=== PATIENT | female | born 1950 | race African-American/Black ===

== ENCOUNTER 2022-09-13 13:34 | Inpatient (IN) | payer OTHER ==
[2022-09-13] MEDS ORDERED: Bisacodyl 10 MG SUPP PR PRN (16:40)
[2022-09-13] MEDS ORDERED: Acetaminophen 325 MG TAB PO PRN (16:40)
[2022-09-13] MEDS ORDERED: Senokot S 8.6-50 MG TAB PO PRN (16:40)
[2022-09-13] MEDS ORDERED: Ipratropium/Albuterol 3 ML NEB EZPAP PRN (17:19)
[2022-09-13] MEDS ORDERED: ACETAMINOPHEN 325 MG/10.15 ML PER TUBE SCH (21:00)
[2022-09-13] MEDS ORDERED: [UNRECOGNIZED DRUG - OTHER] PER TUBE SCH (21:00)
[2022-09-13 21:03] VITALS: BMI 26.0
[2022-09-13] MEDS: Lansoprazole 3 MG/ML ORAL SUSPENSION PER TUBE SCH (21:37)
[2022-09-13] MEDS: Senokot S 8.6-50 MG TAB PO SCH (21:39)
[2022-09-13] MEDS: Apixaban 5 MG TAB PER TUBE SCH (21:39)
[2022-09-13] MEDS: Atorvastatin Calcium 40 MG TAB PER TUBE SCH (21:39)
[2022-09-14 06:12] LABS: #Basophils 0.2 thou/uL (0.0-0.2); #Eosinphils 0.5 thou/uL (0.0-0.7); #Lymphocytes 1.5 thou/uL (1.20-3.40); #Monocytes 0.5 thou/uL (0.11-0.59); #Neutrophils 4.3 thou/uL (1.40-6.50); %Basophils 2.5 % (0.0-1.0); %Eosinophils 7.3 % (0.0-10.0); %Lymphocytes 21.5 % (21.0-51.0); %Monocytes 6.8 % (0.0-10.0); %Neutrophils 61.9 % (42.0-75.0); Hemoglobin 11.5 g/dL (12.0-16.0); Mean Corpuscular HGB CONC 31.1 g/dL (32.0-36.0); Mean Corpuscular Hemoglobin 25.8 pg (27.0-31.0); Mean Corpuscular Volume 83.1 fl (78.0-98.0); Platelet Count 497 10x3/uL (130-400); RBC Distribution Width 13.4 % (11.5-14.5); Red Blood Cell (RBC) Count 4.44 mill/uL (4.20-5.40); White Blood Cell (WBC) Count 6.9 10x3/uL (4.8-10.8)
[2022-09-14 06:23] LABS: ALT (SGPT) 21 U/L (8-55); AST (SGOT) 22 U/L (5-34); Albumin 3.4 g/dL (3.4-4.8); Alkaline Phosphatase 95 U/L (40-110); Anion Gap 12 mmol/L (10-20); BUN (Urea Nitrogen) 25 mg/dL (9.8-20.1); Bilirubin, Total 0.2 mg/dL (0.2-1.2); Calc. Creatinine Clearance 72 mL/min (70-130); Calcium 9.8 mg/dL (7.8-10.44); Carbon Dioxide 28 mmol/L (23-31); Chloride 101 mmol/L (98-107); Estimated GFR 73; Glucose 153 mg/dL (80-115); Potassium 4.4 mmol/L (3.5-5.1); Protein, Total 7.4 g/dL (5.8-8.1); Sodium 137 mmol/L (136-145)
[2022-09-14] MEDS: Levothyroxine Sodium 25 MCG TAB PER TUBE SCH (06:26)
[2022-09-14] MEDS ORDERED: Dextrose 5% in Water 1,000 ML IV PRN (06:30)
[2022-09-14] MEDS ORDERED: HumaLOG 300 UNITS/3 ML VIAL SC PRN ×2 (06:30)
[2022-09-14] MEDS ORDERED: Glucagon 1 MG/ML KIT IM PRN (06:30)
[2022-09-14] MEDS ORDERED: Dextrose 50% Abboject 50 ML SYRINGE IVP PRN (06:30)
[2022-09-14] MEDS ORDERED: Carvedilol 25 MG TAB PER TUBE SCH (09:00)
[2022-09-14] MEDS: metFORMIN 500 MG TAB PER TUBE SCH (12:18)
[2022-09-14] MEDS: Senokot S 8.6-50 MG TAB PO SCH ×2 (12:18→21:20)
[2022-09-14] MEDS: Apixaban 5 MG TAB PER TUBE SCH ×2 (12:18→21:20)
[2022-09-14] MEDS: Aspirin Chewable 81 MG TAB PER TUBE SCH (12:19)
[2022-09-14] MEDS: Lansoprazole 3 MG/ML ORAL SUSPENSION PER TUBE SCH ×2 (12:20→21:17)
[2022-09-14] MEDS: Venlafaxine HCl XR 75 MG CAP PO SCH (12:22)
[2022-09-14] MEDS ORDERED: traMADol HCl 50 MG TAB PO PRN (18:12)
[2022-09-14] MEDS: Carvedilol 6.25 MG TAB PER TUBE SCH (18:16)
[2022-09-14] MEDS: Atorvastatin Calcium 40 MG TAB PER TUBE SCH (21:19)
[2022-09-14] MEDS: Ondansetron ODT 4 MG TAB PER TUBE PRN (22:00)
[2022-09-15] MEDS: Levothyroxine Sodium 25 MCG TAB PER TUBE SCH (06:18)
[2022-09-15] MEDS: Aspirin Chewable 81 MG TAB PER TUBE SCH (08:16)
[2022-09-15] MEDS: Senokot S 8.6-50 MG TAB PO SCH ×2 (08:16→21:24)
[2022-09-15] MEDS: metFORMIN 500 MG TAB PER TUBE SCH (08:16)
[2022-09-15] MEDS: Apixaban 5 MG TAB PER TUBE SCH ×2 (08:16→21:24)
[2022-09-15] MEDS: Carvedilol 6.25 MG TAB PER TUBE SCH ×2 (08:19→16:14)
[2022-09-15] MEDS: Lansoprazole 3 MG/ML ORAL SUSPENSION PER TUBE SCH ×2 (08:19→21:24)
[2022-09-15] MEDS: Venlafaxine HCl XR 75 MG CAP PO SCH (08:20)
[2022-09-15] MEDS: Ondansetron ODT 4 MG TAB PER TUBE PRN ×2 (09:30→18:24)
[2022-09-15] MEDS ORDERED: Promethazine 25 MG TAB PER TUBE SCH (10:00)
[2022-09-15] MEDS: Atorvastatin Calcium 40 MG TAB PER TUBE SCH (21:24)
[2022-09-16] MEDS: Levothyroxine Sodium 25 MCG TAB PER TUBE SCH (05:43)
[2022-09-16] MEDS: metFORMIN 500 MG TAB PER TUBE SCH (08:32)
[2022-09-16] MEDS: Lansoprazole 3 MG/ML ORAL SUSPENSION PER TUBE SCH ×2 (08:32→21:46)
[2022-09-16] MEDS: Venlafaxine HCl XR 75 MG CAP PO SCH (08:33)
[2022-09-16] MEDS: Apixaban 5 MG TAB PER TUBE SCH ×2 (08:33→21:23)
[2022-09-16] MEDS: Aspirin Chewable 81 MG TAB PER TUBE SCH (08:33)
[2022-09-16] MEDS: Senokot S 8.6-50 MG TAB PO SCH ×2 (08:33→21:23)
[2022-09-16] MEDS: Carvedilol 6.25 MG TAB PER TUBE SCH ×2 (08:51→17:21)
[2022-09-16] MEDS ORDERED: Lactated Ringer's 1,000 ML IV SCH (11:30)
[2022-09-16 14:27] LABS: Bilirubin Negative (Negative); Blood, Urine Large (Negative); Clarity Clear (Clear); Glucose, Urine (Dipstick) Negative (Negative); Ketone, Urine Negative (Negative); Leukocyte Trace (Negative); Nitrite Negative (Negative); Protein, Urine (Dipstick) Negative (Neg-Trace); Specific Gravity, Urine 1.015 (1.005-1.030); Urobilinogen 0.2 mg/dL (Less than 2); pH, Urine 5.5 (5.0-9.0)
[2022-09-16 14:28] LABS: CAUTI Indications for Culture Dysuria,urgency,freq
[2022-09-16 14:32] LABS: RBC/HPF Greater than 50 HPF (0-3); Squamous Epithelial None Seen HPF (0-3); WBC/HPF 0-3 HPF (0-3)
[2022-09-16 14:33] LABS: Bacteria/HPF None Seen HPF (None Seen)
[2022-09-16 14:34] LABS: Urine Culture Reflex No No
[2022-09-16] MEDS: Atorvastatin Calcium 40 MG TAB PER TUBE SCH (21:23)
[2022-09-17] MEDS ORDERED: Docusate 100 MG CAP PO PRN (03:45)
[2022-09-17] MEDS: Levothyroxine Sodium 25 MCG TAB PER TUBE SCH (05:45)
[2022-09-17] MEDS: Venlafaxine HCl XR 75 MG CAP PO SCH (09:43)
[2022-09-17] MEDS: metFORMIN 500 MG TAB PER TUBE SCH ×2 (09:43→20:56)
[2022-09-17] MEDS: Carvedilol 6.25 MG TAB PER TUBE SCH ×2 (09:43→17:30)
[2022-09-17] MEDS: Aspirin Chewable 81 MG TAB PER TUBE SCH (09:44)
[2022-09-17] MEDS: Apixaban 5 MG TAB PER TUBE SCH ×2 (09:44→20:56)
[2022-09-17] MEDS: Lansoprazole 3 MG/ML ORAL SUSPENSION PER TUBE SCH ×2 (09:44→20:56)
[2022-09-17] MEDS: Senokot S 8.6-50 MG TAB PO SCH ×2 (09:44→21:44)
[2022-09-17] MEDS: Polyethylene Glycol 3350 17 GM Packet PO SCH (09:45)
[2022-09-17] MEDS ORDERED: Lidocaine 5% Patch TD PRN (09:47)
[2022-09-17] MEDS: Atorvastatin Calcium 40 MG TAB PER TUBE SCH (20:55)
[2022-09-18] MEDS: Levothyroxine Sodium 25 MCG TAB PER TUBE SCH (05:28)
[2022-09-18] MEDS: metFORMIN 500 MG TAB PER TUBE SCH ×2 (08:00→20:48)
[2022-09-18] MEDS: Lidocaine 4% Patch TD SCH (08:01)
[2022-09-18] MEDS: Carvedilol 6.25 MG TAB PER TUBE SCH ×2 (08:01→16:22)
[2022-09-18] MEDS: Lansoprazole 3 MG/ML ORAL SUSPENSION PER TUBE SCH ×2 (08:01→20:49)
[2022-09-18] MEDS: Apixaban 5 MG TAB PER TUBE SCH ×2 (08:01→20:48)
[2022-09-18] MEDS: Aspirin Chewable 81 MG TAB PER TUBE SCH (08:01)
[2022-09-18] MEDS: Polyethylene Glycol 3350 17 GM Packet PO SCH (08:01)
[2022-09-18] MEDS: Venlafaxine HCl XR 75 MG CAP PO SCH (08:02)
[2022-09-18] MEDS: Senokot S 8.6-50 MG TAB PO SCH ×2 (08:02→20:48)
[2022-09-18] MEDS: Ondansetron ODT 4 MG TAB PER TUBE PRN (09:39)
[2022-09-18] MEDS: Atorvastatin Calcium 40 MG TAB PER TUBE SCH (20:48)
[2022-09-18] MEDS: Venlafaxine HCl 25 MG TAB PO SCH (20:50)
[2022-09-19] MEDS: Transdermal Patch Removal TOP SCH ×2 (03:31→21:49)
[2022-09-19] MEDS: Levothyroxine Sodium 25 MCG TAB PER TUBE SCH (05:08)
[2022-09-19 05:49] LABS: Mean Corpuscular HGB CONC 32.1 g/dL (32.0-36.0); Mean Corpuscular Hemoglobin 26.1 pg (27.0-31.0); Mean Corpuscular Volume 81.4 fl (78.0-98.0); Platelet Count 303 10x3/uL (130-400); RBC Distribution Width 13.4 % (11.5-14.5); Red Blood Cell (RBC) Count 3.84 mill/uL (4.20-5.40); White Blood Cell (WBC) Count 7.4 10x3/uL (4.8-10.8)
[2022-09-19 06:02] LABS: Phosphorus 3.3 mg/dL (2.3-4.7)
[2022-09-19 06:04] LABS: ALT (SGPT) 17 U/L (8-55); AST (SGOT) 14 U/L (5-34); Albumin 3.2 g/dL (3.4-4.8); Alkaline Phosphatase 79 U/L (40-110); Anion Gap 14 mmol/L (10-20); BUN (Urea Nitrogen) 25 mg/dL (9.8-20.1); Bilirubin, Total 0.2 mg/dL (0.2-1.2); Calc. Creatinine Clearance 76 mL/min (70-130); Calcium 9.4 mg/dL (7.8-10.44); Carbon Dioxide 27 mmol/L (23-31); Chloride 101 mmol/L (98-107); Estimated GFR 77; Globulin 3.8 g/dL (2.4-3.5); Glucose 130 mg/dL (80-115); Magnesium 1.7 mg/dL (1.6-2.6); Potassium 4.2 mmol/L (3.5-5.1); Sodium 138 mmol/L (136-145)
[2022-09-19] MEDS: Magnesium Oxide 400 MG TAB PO SCH ×2 (09:01→21:48)
[2022-09-19] MEDS: Carvedilol 6.25 MG TAB PER TUBE SCH ×2 (09:01→17:38)
[2022-09-19] MEDS: Venlafaxine HCl 25 MG TAB PO SCH ×2 (09:01→21:49)
[2022-09-19] MEDS: Lidocaine 4% Patch TD SCH (09:01)
[2022-09-19] MEDS: Apixaban 5 MG TAB PER TUBE SCH ×2 (09:02→21:48)
[2022-09-19] MEDS: Lansoprazole 3 MG/ML ORAL SUSPENSION PER TUBE SCH ×2 (09:02→21:26)
[2022-09-19] MEDS: metFORMIN 500 MG TAB PER TUBE SCH ×2 (09:02→21:48)
[2022-09-19] MEDS: Empagliflozin 10 MG TAB PO SCH (09:02)
[2022-09-19] MEDS: Aspirin Chewable 81 MG TAB PER TUBE SCH (09:02)
[2022-09-19] MEDS: Polyethylene Glycol 3350 17 GM Packet PO SCH (09:21)
[2022-09-19] MEDS: Senokot S 8.6-50 MG TAB PO SCH ×2 (09:21→21:48)
[2022-09-19] MEDS: Atorvastatin Calcium 40 MG TAB PER TUBE SCH (21:48)
[2022-09-20] MEDS: Levothyroxine Sodium 25 MCG TAB PER TUBE SCH (06:10)
[2022-09-20] MEDS: Ondansetron ODT 4 MG TAB PER TUBE PRN (07:33)
[2022-09-20] MEDS ORDERED: Simethicone Chewable 80 MG TAB PO PRN (10:16)
[2022-09-20] MEDS ORDERED: Magnesium Chloride 64 MG TAB PO SCH ×2 (10:45→21:00)
[2022-09-20] MEDS: Lidocaine 4% Patch TD SCH (10:56)
[2022-09-20] MEDS: Carvedilol 6.25 MG TAB PER TUBE SCH ×2 (10:56→18:42)
[2022-09-20] MEDS: Apixaban 5 MG TAB PER TUBE SCH ×2 (10:56→22:09)
[2022-09-20] MEDS: Polyethylene Glycol 3350 17 GM Packet PO SCH (10:56)
[2022-09-20] MEDS: Senokot S 8.6-50 MG TAB PO SCH ×2 (10:57→22:09)
[2022-09-20] MEDS: Empagliflozin 10 MG TAB PO SCH (10:57)
[2022-09-20] MEDS: Aspirin Chewable 81 MG TAB PER TUBE SCH (10:57)
[2022-09-20] MEDS: Venlafaxine HCl 25 MG TAB PO SCH ×2 (10:57→22:09)
[2022-09-20] MEDS: metFORMIN 500 MG TAB PER TUBE SCH ×2 (10:57→22:16)
[2022-09-20] MEDS: Lansoprazole 3 MG/ML ORAL SUSPENSION PER TUBE SCH ×2 (10:58→22:09)
[2022-09-20] MEDS ORDERED: Magnesium Oxide 400 MG TAB PO SCH (11:00)
[2022-09-20] MEDS: Fleet Saline Enema 133 ML BOT PR SCH ×2 (11:01→12:57)
[2022-09-20] MEDS: Atorvastatin Calcium 40 MG TAB PER TUBE SCH (22:09)
[2022-09-20] MEDS: Magnesium Oxide 400 MG TAB PO SCH (22:09)
[2022-09-20] MEDS: Transdermal Patch Removal TOP SCH (22:10)
[2022-09-21] MEDS: Levothyroxine Sodium 25 MCG TAB PER TUBE SCH (04:59)
[2022-09-21 05:40] LABS: Hemoglobin 9.9 g/dL (12.0-16.0); Mean Corpuscular HGB CONC 32.4 g/dL (32.0-36.0); Mean Corpuscular Hemoglobin 26.4 pg (27.0-31.0); Mean Corpuscular Volume 81.5 fl (78.0-98.0); Platelet Count 266 10x3/uL (130-400); RBC Distribution Width 13.3 % (11.5-14.5); Red Blood Cell (RBC) Count 3.77 mill/uL (4.20-5.40); White Blood Cell (WBC) Count 6.9 10x3/uL (4.8-10.8)
[2022-09-21 05:52] LABS: Anion Gap 15 mmol/L (10-20); BUN (Urea Nitrogen) 21 mg/dL (9.8-20.1); Calc. Creatinine Clearance 77 mL/min (70-130); Calcium 9.5 mg/dL (7.8-10.44); Carbon Dioxide 25 mmol/L (23-31); Chloride 102 mmol/L (98-107); Estimated GFR 78; Glucose 125 mg/dL (80-115); Magnesium 1.9 mg/dL (1.6-2.6); Potassium 3.9 mmol/L (3.5-5.1); Sodium 138 mmol/L (136-145)
[2022-09-21] MEDS: Carvedilol 6.25 MG TAB PER TUBE SCH (08:00)
[2022-09-21] MEDS: Polyethylene Glycol 3350 17 GM Packet PO SCH (09:13)
[2022-09-21] MEDS: Senokot S 8.6-50 MG TAB PO SCH ×2 (09:13→21:47)
[2022-09-21] MEDS: Venlafaxine HCl 25 MG TAB PO SCH ×2 (09:13→21:48)
[2022-09-21] MEDS: Aspirin Chewable 81 MG TAB PER TUBE SCH (09:13)
[2022-09-21] MEDS: metFORMIN 500 MG TAB PER TUBE SCH ×2 (09:13→16:39)
[2022-09-21] MEDS: Magnesium Oxide 400 MG TAB PO SCH ×2 (09:13→21:48)
[2022-09-21] MEDS: Lidocaine 4% Patch TD SCH (09:13)
[2022-09-21] MEDS: Empagliflozin 10 MG TAB PO SCH (09:13)
[2022-09-21] MEDS: Apixaban 5 MG TAB PER TUBE SCH ×2 (09:13→21:48)
[2022-09-21] MEDS: Lansoprazole 3 MG/ML ORAL SUSPENSION PER TUBE SCH ×2 (09:13→21:46)
[2022-09-21] MEDS: Docusate 100 MG CAP PO SCH (09:15)
[2022-09-21] MEDS: Carvedilol 3.125 MG TAB PO SCH (16:38)
[2022-09-21] MEDS: Transdermal Patch Removal TOP SCH (21:48)
[2022-09-21] MEDS: Atorvastatin Calcium 40 MG TAB PER TUBE SCH (21:48)
[2022-09-22] MEDS: Levothyroxine Sodium 25 MCG TAB PER TUBE SCH (04:58)
[2022-09-22] MEDS: Magnesium Oxide 400 MG TAB PO SCH ×2 (08:19→21:19)
[2022-09-22] MEDS: Venlafaxine HCl 25 MG TAB PO SCH ×2 (08:19→21:19)
[2022-09-22] MEDS: Aspirin Chewable 81 MG TAB PER TUBE SCH (08:19)
[2022-09-22] MEDS: Apixaban 5 MG TAB PER TUBE SCH ×2 (08:19→21:19)
[2022-09-22] MEDS: metFORMIN 500 MG TAB PER TUBE SCH ×2 (08:19→16:49)
[2022-09-22] MEDS: Empagliflozin 10 MG TAB PO SCH (08:19)
[2022-09-22] MEDS: Senokot S 8.6-50 MG TAB PO SCH ×2 (08:19→21:19)
[2022-09-22] MEDS: Multivitamins CHEW w/Iron Tablet PO SCH (08:19)
[2022-09-22] MEDS: Polyethylene Glycol 3350 17 GM Packet PO SCH (08:19)
[2022-09-22] MEDS: Lidocaine 4% Patch TD SCH (08:19)
[2022-09-22] MEDS: Carvedilol 3.125 MG TAB PO SCH ×2 (08:20→16:49)
[2022-09-22] MEDS: Lansoprazole 3 MG/ML ORAL SUSPENSION PER TUBE SCH ×3 (08:20→21:19)
[2022-09-22] MEDS: Docusate 100 MG CAP PO SCH (08:20)
[2022-09-22] MEDS: Atorvastatin Calcium 40 MG TAB PER TUBE SCH (21:19)
[2022-09-22] MEDS: Transdermal Patch Removal TOP SCH (21:20)
[2022-09-23] MEDS: Levothyroxine Sodium 25 MCG TAB PER TUBE SCH (04:53)
[2022-09-23] MEDS: Ondansetron ODT 4 MG TAB PER TUBE PRN ×2 (07:42→16:50)
[2022-09-23] MEDS: metFORMIN 500 MG TAB PER TUBE SCH ×2 (09:47→16:47)
[2022-09-23] MEDS: Magnesium Oxide 400 MG TAB PO SCH ×2 (09:48→21:14)
[2022-09-23] MEDS: Aspirin Chewable 81 MG TAB PER TUBE SCH (09:48)
[2022-09-23] MEDS: Venlafaxine HCl 25 MG TAB PO SCH ×2 (09:48→21:14)
[2022-09-23] MEDS: Empagliflozin 10 MG TAB PO SCH (09:48)
[2022-09-23] MEDS: Apixaban 5 MG TAB PER TUBE SCH ×2 (09:48→21:14)
[2022-09-23] MEDS: Docusate 100 MG CAP PO SCH ×2 (09:48→10:09)
[2022-09-23] MEDS: Senokot S 8.6-50 MG TAB PO SCH ×2 (09:49→21:14)
[2022-09-23] MEDS: Lidocaine 4% Patch TD SCH (09:49)
[2022-09-23] MEDS: Polyethylene Glycol 3350 17 GM Packet PO SCH (09:49)
[2022-09-23] MEDS: Lansoprazole 3 MG/ML ORAL SUSPENSION PER TUBE SCH ×2 (09:49→21:15)
[2022-09-23] MEDS: Multivitamins CHEW w/Iron Tablet PO SCH ×2 (09:49→10:08)
[2022-09-23] MEDS: Carvedilol 3.125 MG TAB PO SCH ×2 (09:56→16:46)
[2022-09-23] MEDS: Transdermal Patch Removal TOP SCH (21:14)
[2022-09-23] MEDS: Atorvastatin Calcium 40 MG TAB PER TUBE SCH (21:14)
[2022-09-24 06:05] LABS: #Basophils 0.1 thou/uL (0.0-0.2); #Eosinphils 0.4 thou/uL (0.0-0.7); #Lymphocytes 1.8 thou/uL (1.20-3.40); #Monocytes 0.6 thou/uL (0.11-0.59); #Neutrophils 5.5 thou/uL (1.40-6.50); %Basophils 1.4 % (0.0-1.0); %Eosinophils 5.1 % (0.0-10.0); %Lymphocytes 21.1 % (21.0-51.0); %Monocytes 7.5 % (0.0-10.0); %Neutrophils 64.8 % (42.0-75.0); Hemoglobin 9.4 g/dL (12.0-16.0); Mean Corpuscular HGB CONC 31.5 g/dL (32.0-36.0); Mean Corpuscular Volume 82.5 fl (78.0-98.0); Mean Platelet Volume 8.1 fL (7.4-10.4); Platelet Count 265 10x3/uL (130-400); RBC Distribution Width 12.9 % (11.5-14.5); Red Blood Cell (RBC) Count 3.61 mill/uL (4.20-5.40); White Blood Cell (WBC) Count 8.5 10x3/uL (4.8-10.8)
[2022-09-24 06:19] LABS: Anion Gap 12 mmol/L (10-20); BUN (Urea Nitrogen) 16 mg/dL (9.8-20.1); Calc. Creatinine Clearance 72 mL/min (70-130); Calcium 9.6 mg/dL (7.8-10.44); Carbon Dioxide 28 mmol/L (23-31); Chloride 101 mmol/L (98-107); Estimated GFR 72; Glucose 108 mg/dL (80-115); Potassium 4.1 mmol/L (3.5-5.1); Sodium 137 mmol/L (136-145)
[2022-09-24] MEDS: Levothyroxine Sodium 25 MCG TAB PER TUBE SCH (06:51)
[2022-09-24] MEDS: Ondansetron ODT 4 MG TAB PER TUBE PRN (07:23)
[2022-09-24] MEDS: Magnesium Oxide 400 MG TAB PO SCH ×2 (09:25→20:27)
[2022-09-24] MEDS: Carvedilol 3.125 MG TAB PO SCH ×2 (09:25→16:19)
[2022-09-24] MEDS: metFORMIN 500 MG TAB PER TUBE SCH ×2 (09:25→16:19)
[2022-09-24] MEDS: Senokot S 8.6-50 MG TAB PO SCH ×2 (09:26→20:28)
[2022-09-24] MEDS: Apixaban 5 MG TAB PER TUBE SCH ×2 (09:26→20:28)
[2022-09-24] MEDS: Polyethylene Glycol 3350 17 GM Packet PO SCH (09:26)
[2022-09-24] MEDS: Venlafaxine HCl 25 MG TAB PO SCH ×2 (09:26→20:27)
[2022-09-24] MEDS: Empagliflozin 10 MG TAB PO SCH (09:26)
[2022-09-24] MEDS: Aspirin Chewable 81 MG TAB PER TUBE SCH (09:26)
[2022-09-24] MEDS: Lansoprazole 3 MG/ML ORAL SUSPENSION PER TUBE SCH ×2 (09:27→20:26)
[2022-09-24] MEDS: Lidocaine 4% Patch TD SCH (09:27)
[2022-09-24] MEDS: Docusate 100 MG CAP PO SCH (09:43)
[2022-09-24] MEDS: Multivitamins CHEW w/Iron Tablet PO SCH (09:43)
[2022-09-24] MEDS: Atorvastatin Calcium 40 MG TAB PER TUBE SCH (20:27)
[2022-09-24] MEDS: Transdermal Patch Removal TOP SCH (20:28)
[2022-09-25] MEDS: Levothyroxine Sodium 25 MCG TAB PER TUBE SCH (05:23)
[2022-09-25 06:03] LABS: #Basophils 0.1 thou/uL (0.0-0.2); #Eosinphils 0.4 thou/uL (0.0-0.7); #Lymphocytes 1.8 thou/uL (1.20-3.40); #Monocytes 0.8 thou/uL (0.11-0.59); #Neutrophils 4.8 thou/uL (1.40-6.50); %Basophils 1.7 % (0.0-1.0); %Eosinophils 5.1 % (0.0-10.0); %Lymphocytes 22.7 % (21.0-51.0); %Monocytes 10.5 % (0.0-10.0); Hemoglobin 9.3 g/dL (12.0-16.0); Mean Corpuscular HGB CONC 32.3 g/dL (32.0-36.0); Mean Corpuscular Hemoglobin 26.3 pg (27.0-31.0); Mean Corpuscular Volume 81.6 fl (78.0-98.0); Mean Platelet Volume 8.1 fL (7.4-10.4); Platelet Count 272 10x3/uL (130-400); RBC Distribution Width 13.6 % (11.5-14.5); Red Blood Cell (RBC) Count 3.53 mill/uL (4.20-5.40)
[2022-09-25 06:17] LABS: ALT (SGPT) 13 U/L (8-55); AST (SGOT) 13 U/L (5-34); Albumin 3.3 g/dL (3.4-4.8); Alkaline Phosphatase 70 U/L (40-110); Anion Gap 12 mmol/L (10-20); BUN (Urea Nitrogen) 16 mg/dL (9.8-20.1); Bilirubin, Total 0.2 mg/dL (0.2-1.2); Calc. Creatinine Clearance 72 mL/min (70-130); Calcium 9.4 mg/dL (7.8-10.44); Carbon Dioxide 30 mmol/L (23-31); Chloride 100 mmol/L (98-107); Estimated GFR 72; Globulin 3.7 g/dL (2.4-3.5); Glucose 113 mg/dL (80-115); Magnesium 1.9 mg/dL (1.6-2.6); Potassium 4.3 mmol/L (3.5-5.1); Sodium 138 mmol/L (136-145)
[2022-09-25] MEDS: Ondansetron ODT 4 MG TAB PER TUBE PRN (07:20)
[2022-09-25] MEDS: Lidocaine 4% Patch TD SCH (08:47)
[2022-09-25] MEDS: metFORMIN 500 MG TAB PER TUBE SCH ×2 (08:49→18:23)
[2022-09-25] MEDS: Carvedilol 3.125 MG TAB PO SCH ×2 (08:49→18:23)
[2022-09-25] MEDS: Aspirin Chewable 81 MG TAB PER TUBE SCH (08:50)
[2022-09-25] MEDS: Apixaban 5 MG TAB PER TUBE SCH ×2 (08:50→20:42)
[2022-09-25] MEDS: Docusate 100 MG CAP PO SCH (08:50)
[2022-09-25] MEDS: Magnesium Oxide 400 MG TAB PO SCH ×2 (08:50→20:42)
[2022-09-25] MEDS: Venlafaxine HCl 25 MG TAB PO SCH ×2 (08:50→20:42)
[2022-09-25] MEDS: Empagliflozin 10 MG TAB PO SCH (08:50)
[2022-09-25] MEDS: Senokot S 8.6-50 MG TAB PO SCH ×2 (08:51→20:42)
[2022-09-25] MEDS: Polyethylene Glycol 3350 17 GM Packet PO SCH (08:51)
[2022-09-25] MEDS: Multivitamins CHEW w/Iron Tablet PO SCH (08:51)
[2022-09-25] MEDS: Lansoprazole 3 MG/ML ORAL SUSPENSION PER TUBE SCH ×2 (09:15→20:43)
[2022-09-25] MEDS: Atorvastatin Calcium 40 MG TAB PER TUBE SCH (20:50)
[2022-09-25] MEDS: Transdermal Patch Removal TOP SCH (20:59)
[2022-09-26] MEDS: Levothyroxine Sodium 25 MCG TAB PER TUBE SCH (05:35)
[2022-09-26] MEDS: Ondansetron ODT 4 MG TAB PER TUBE PRN (07:43)
[2022-09-26] MEDS: Lidocaine 4% Patch TD SCH (07:45)
[2022-09-26] MEDS: Aspirin Chewable 81 MG TAB PER TUBE SCH (07:46)
[2022-09-26] MEDS: Venlafaxine HCl 25 MG TAB PO SCH ×2 (07:46→22:06)
[2022-09-26] MEDS: Apixaban 5 MG TAB PER TUBE SCH ×2 (07:46→22:06)
[2022-09-26] MEDS: Empagliflozin 10 MG TAB PO SCH (07:46)
[2022-09-26] MEDS: Magnesium Oxide 400 MG TAB PO SCH ×2 (07:47→22:05)
[2022-09-26] MEDS: Docusate Sodium 100 MG/10 ML UDCUP PO SCH (07:47)
[2022-09-26] MEDS: metFORMIN 500 MG TAB PER TUBE SCH ×2 (07:47→17:31)
[2022-09-26] MEDS: Senokot S 8.6-50 MG TAB PO SCH ×2 (07:49→22:05)
[2022-09-26] MEDS: Carvedilol 3.125 MG TAB PO SCH ×2 (07:57→17:31)
[2022-09-26] MEDS: Polyethylene Glycol 3350 17 GM Packet PO SCH (08:11)
[2022-09-26] MEDS: Lansoprazole 3 MG/ML ORAL SUSPENSION PER TUBE SCH ×2 (09:52→22:06)
[2022-09-26] MEDS: Transdermal Patch Removal TOP SCH (22:05)
[2022-09-26] MEDS: Atorvastatin Calcium 40 MG TAB PER TUBE SCH (22:05)
[2022-09-27] MEDS: Levothyroxine Sodium 25 MCG TAB PER TUBE SCH (05:45)
[2022-09-27 07:28] VITALS: BP 108/59; TEMP 98.1
[2022-09-27] MEDS: Senokot S 8.6-50 MG TAB PO SCH (08:48)
[2022-09-27] MEDS: Polyethylene Glycol 3350 17 GM Packet PO SCH (08:49)
[2022-09-27] MEDS: Docusate Sodium 100 MG/10 ML UDCUP PO SCH (08:49)
[2022-09-27] MEDS: Aspirin Chewable 81 MG TAB PER TUBE SCH (08:50)
[2022-09-27] MEDS: Venlafaxine HCl 25 MG TAB PO SCH (08:50)
[2022-09-27] MEDS: metFORMIN 500 MG TAB PER TUBE SCH (08:50)
[2022-09-27] MEDS: Apixaban 5 MG TAB PER TUBE SCH (08:50)
[2022-09-27] MEDS: Magnesium Oxide 400 MG TAB PO SCH (08:51)
[2022-09-27] MEDS: Carvedilol 3.125 MG TAB PO SCH (08:51)
[2022-09-27] MEDS: Lansoprazole 3 MG/ML ORAL SUSPENSION PER TUBE SCH (08:51)
[2022-09-27] MEDS: Empagliflozin 10 MG TAB PO SCH (08:51)
[2022-09-27] MEDS: Lidocaine 4% Patch TD SCH (08:51)
== END 2022-09-27 12:38 | disposition home health service (06) | DRG 57 ==
LOC: NAV ACUTE 20:59
PROVIDERS: ADMIT Family Medicine; ATTEND Family Medicine
DX: I69.398 Other sequelae of cerebral infarction (principal); I69.352 Hemiplegia and hemiparesis following cerebral infarction affecting left dominant side; I50.32 Chronic diastolic (congestive) heart failure; E11.9 Type 2 diabetes mellitus without complications; I48.91 Unspecified atrial fibrillation; R13.10 Dysphagia, unspecified; D64.9 Anemia, unspecified; E03.9 Hypothyroidism, unspecified; R53.81 Other malaise; R33.9 Retention of urine, unspecified; I95.1 Orthostatic hypotension; K59.09 Other constipation; F32.9 Major depressive disorder, single episode, unspecified; I48.0 Paroxysmal atrial fibrillation; Z79.01 Long term (current) use of anticoagulants; Z85.819 Personal history of malignant neoplasm of unspecified site of lip, oral cavity, and pharynx; Z98.890 Other specified postprocedural states; Z93.1 Gastrostomy status
CPT/HCPCS: 36415; 36416; 74018; 80048; 80053; 81001; 83735; 84100; 85025; 85027; 87086; J7120; Q0162